=== PATIENT | female | born 1965 | race Caucasian/White ===

== ENCOUNTER → 2019-12-12 | Outpatient (CLI) | payer OTHER ==
[~2019-12-12] MED LIST: ATOR20TA37 PO; ESCI20TA PO; OMEP-110 PO
== END | disposition home or self-care (01) ==
LOC: CFH 15:07
PROVIDERS: ATTEND Specialist
DX: Z12.31 Encounter for screening mammogram for malignant neoplasm of breast (principal)
CPT/HCPCS: 77067